=== PATIENT | female | born 1965 | race Caucasian/White ===

== ENCOUNTER 2022-11-04 14:19 | Outpatient (CLI) | payer BC, SELFPAY | END 2022-11-04 14:20 | disposition home or self-care (01) | LOC: ANHAUDIO 14:20 | PROVIDERS: PCP Family Medicine; Visit Provider Nurse Practitioner | DX: H90.3 Sensorineural hearing loss, bilateral (principal) | CPT/HCPCS: 92557; 92567 ==

== ENCOUNTER 2022-11-10 00:33 | Day surgery (SDC) | payer BC, SELFPAY ==
[2022-10-30 11:54] VITALS: BMI 27.3
[2022-11-10 09:58] VITALS: BP 143/66; PULSE 64; RESP 18; TEMP 36.4; O2SAT 98
[2022-11-10] MEDS: LACTATED RINGERS 1,000 ML 150 ML IV CONT (10:04)
--- NOTE | 2022-11-10 10:17 | WPDANESEPPF ---
Anes - Initial Pre Proc Eval Procedure: Operation Date: 11/10/22 11:00 Proposed Procedures p Colonoscopy - Itz Rahman MD Date/Time: 11/10/22 10:17 Surgeon: Itz Rahman MD Pre Op Diagnosis: IBS, neoplasm screening Patient Data Age: 57 Gender: F Height: 1.68 m Weight: 76 kg Last Vital Signs Temp 97.5 F L 11/10/22 09:58 Pulse 64 11/10/22 09:58 Resp 18 11/10/22 09:58 BP 143/66 H 11/10/22 09:58 Pulse Ox 98 11/10/22 09:58 O2 Del Method Room Air 11/10/22 09:58 Allergies Allergy/AdvReac Type Severity Reaction Status Date / Time No Known Allergies Allergy Verified 11/10/22 09:57 Home Medications Medication Instructions Recorded Confirmed Type hydroxyzine HCl 25 mg tablet 25 mg PO TID PRN anxiety #90 tabs 09/09/22 10/30/22 Rx multivitamin with minerals-folic 1 tablet PO .QD 09/09/22 10/30/22 History acid 200 mcg chewable tablet (Women's Multivitamin Gummies) hyoscyamine sulfate 0.125 mg 0.125 mg sublingual .every 6 hours 09/23/22 10/30/22 Rx sublingual tablet (Levsin/SL) PRN abdominal pain #30 tabs sertraline 100 mg tablet (Zoloft) 100 mg PO DAILY #90 tabs 10/29/22 10/30/22 Rx Patient hx anesthesia problems: none Family hx anesthesia problems: none Results Review: All pre-operative results and documents have been reviewed as part of the pre-operative evaluation. [facility] Past Medical History Medical History Anxiety Bilateral knee pain Collagenous colitis History of cystocele Insomnia Irritable bowel syndrome (IBS) Surgical History Surgical History H/O tubal ligation (~07/2003) History of partial hysterectomy (~2016) Status post creation of urethral sling by suprapubic approach Status post right rotator cuff repair (~1999) Social History Social History Smoking status: Never smoker Alcohol intake: current Drinks per week: 4 Alcohol use details: wine and vodka Substance use: current Substance use type: marijuana Lack of Transportation: No Lack of Food: Never True Current Housing: I Have Housing Concerned About Future Housing: No Difficulty Paying Gas/Electric Bills: No Difficulty Paying for Meds: No Currently Unemployed: No Education: Bachelor's Degree Difficulty w/ Childcare or Family Care: No Living arrangements: with family Additional living arrangements comments: Occupation/Education: occupation Additional occupation/education comments: Self employed Gender identity (if verbalized by the patient): Female Sexual Orientation (if Verbalized by the Patient): Straight or Heterosexual Spiritual care concerns: No Agree to blood products: Yes Anes - Eval Final PreProcedure Day of Procedure 11/10/22 10:17 Patient weight: normal Heart: regular rate and rhythm Lungs: clear to auscultation Airway: Mallampati scale class II Neurological: alert and oriented Last oral intake: >/= 8 hours ASA classification: II Emergent: no Anesthetic plan: proceed Anesthesia type and monitoring: general GIVS and standard monitoring Results Review: All pre-operative results and documents have been reviewed as part of the pre-operative evaluation. Informed Consent: The patient's anesthetic plan and its attendant risks and benefits were discussed with the patient/family/POA. Questions were solicited and answers provided to the satisfaction of the patient/family/POA.
--- NOTE | 2022-11-10 11:05 | PM.HPGS ---
History of Present Illness History of Present Illness Consent: Risks, benefits, and alternatives have been discussed and questions answered. Patient agrees to proceed with procedure. Chief complaint: IBS, neoplasm screening Narrative: Clari Oneill is a 57 year old female here for colon screening, last one 2014 but poor prep, also intermittent episodes 2-3 times a year of severe abdominal pain with diarrhea and pre syncope. Review of Systems Constitutional: Constitutional: Denies headache(s) and Denies weakness Eyes: Eyes: Denies blurry vision ENT: Reports Normal hearing present, Denies headache(s) and Denies neck pain Cardiovascular: Cardiovascular: Denies chest pain and Denies dyspnea Respiratory: Respiratory: Denies dyspnea Gastrointestinal: Gastrointestinal: Reports no additional gastrointestinal complaints Genitourinary: Genitourinary: Denies dysuria Musculoskeletal: Musculoskeletal: Denies neck pain Integumentary/Breasts: Skin/Breast: Denies dry skin Neurologic: Reports Normal hearing present, Denies headache(s) and Denies weakness Psychiatric: Psychiatric: Denies anxiety Endocrine: Endocrine: Denies change in body appearance Hematologic/Lymphatic: Hematologic/Lymphatic: Denies easy bleeding Allergic/Immunologic: Allergic/Immunologic: Denies urticaria PMFSH Past Medical History Medical History (Updated 11/10/22 @ 11:06 by Itz Rahman MD) Anxiety Bilateral knee pain Collagenous colitis Colon cancer screening History of cystocele Insomnia Irritable bowel syndrome (IBS) Surgical History Surgical History H/O tubal ligation (~07/2003) History of partial hysterectomy (~2016) Status post creation of urethral sling by suprapubic approach Status post right rotator cuff repair (~1999) Social History Social History Smoking status: Never smoker Alcohol intake: current Drinks per week: 4 Alcohol use details: wine and vodka Substance use: current Substance use type: marijuana Lack of Transportation: No Lack of Food: Never True Current Housing: I Have Housing Concerned About Future Housing: No Difficulty Paying Gas/Electric Bills: No Difficulty Paying for Meds: No Currently Unemployed: No Education: Bachelor's Degree Difficulty w/ Childcare or Family Care: No Living arrangements: with family Additional living arrangements comments: Occupation/Education: occupation Additional occupation/education comments: Self employed Gender identity (if verbalized by the patient): Female Sexual Orientation (if Verbalized by the Patient): Straight or Heterosexual Spiritual care concerns: No Agree to blood products: Yes Meds Home Medications and Allergies Home Medications Medication Instructions Recorded Confirmed Type hydroxyzine HCl 25 mg tablet 25 mg PO TID PRN anxiety #90 tabs 09/09/22 10/30/22 Rx multivitamin with minerals-folic 1 tablet PO .QD 09/09/22 10/30/22 History acid 200 mcg chewable tablet (Women's Multivitamin Gummies) hyoscyamine sulfate 0.125 mg 0.125 mg sublingual .every 6 hours 09/23/22 10/30/22 Rx sublingual tablet (Levsin/SL) PRN abdominal pain #30 tabs sertraline 100 mg tablet (Zoloft) 100 mg PO DAILY #90 tabs 10/29/22 10/30/22 Rx Allergies Allergy/AdvReac Type Severity Reaction Status Date / Time No Known Allergies Allergy Verified 11/10/22 09:57 Vital Signs Vital Signs - 24 hr 11/10/22 09:58 Temperature 97.5 F L Pulse Rate 64 Respiratory Rate 18 Blood Pressure 143/66 H Pulse Oximetry 98 Oxygen Delivery Room Air Exam Const: General: comfortable and no acute distress HENMT: Face/Nose/Sinus: Normal nares present Eyes: General: appearance normal, both eyes and all related structures Neck: Neck: no JVD Resp: Auscultation: clear to auscultation bilaterally Cardio: R
[2022-11-10 11:32] VITALS: BP 105/66; PULSE 57; RESP 18; O2SAT 99
[2022-11-10 11:42] VITALS: BP 131/100; PULSE 58; RESP 21; O2SAT 99
[2022-11-10 11:52] VITALS: BP 104/64; PULSE 52; RESP 21; O2SAT 99
== END 2022-11-10 11:56 | disposition home or self-care (01) ==
PROVIDERS: PCP Family Medicine; Visit Provider Internal Medicine Gastroenterology
PROC: 0DJD8ZZ Inspection of Lower Intestinal Tract, Via Natural or Artificial Opening Endoscopic (ICD-10-PCS; CPT 45378; principal; 2022-11-10 11:00)
DX: Z12.11 Encounter for screening for malignant neoplasm of colon (principal); K58.9 Irritable bowel syndrome, unspecified; F41.9 Anxiety disorder, unspecified; F12.90 Cannabis use, unspecified, uncomplicated
CPT/HCPCS: 45380; 88305; J2704; J7120

== ENCOUNTER 2023-03-04 08:32 | Outpatient (CLI) | payer BC, SELFPAY ==
[2023-03-04 18:52] LABS: Basophils Percent Auto 0.8 % (0.2-1.2); Eosinophils Absolute Auto 0.1 K/mm3 (0-0.3); Eosinophils Percent Auto 1.1 % (0-4.4); Hematocrit 38.9 % (37.0-47.0); Hemoglobin 12.7 g/dL (12.0-15.0); Immature Granulocyte Absolute 0.01 K/mm3 (0.00-0.031); Immature Granulocyte Percent A 0.2 % (0-0.5); Lymphocytes Absolute Auto 1.62 K/mm3 (0.9-3.2); Lymphocytes Percent Auto 30.5 % (18.3-44.2); Mean Corpuscular HGB Conc 32.6 g/dl (32-36); Mean Corpuscular Hemoglobin 33.1 pg (26-34); Mean Corpuscular Volume 101.3 fl (80-100); Mean Platelet Volume 10.3 fl (7.4-10.4); Monocytes Absolute Auto 0.4 K/mm3 (0.1-0.6); Monocytes Percent Auto 6.6 % (2.6-8.5); Neutrophils Absolute Auto 3.2 K/mm3 (1.3-6.7); Neutrophils Percent Auto 60.8 % (45.5-73.1); Platelet Count Result 238 k/mm3 (150-375); Red Blood Count 3.84 M/mm3 (4.2-5.4); Red Cell Distribution Width 12.2 % (11.5-14.5); White Blood Count 5.3 K/mm3 (4.5-10.0)
[2023-03-04 20:03] LABS: Vitamin D 25 Hydroxy 35.6 ng/mL
[2023-03-05 03:47] LABS: Alanine Aminotransferase 28 U/L (6-35); Albumin Level 4.2 g/dL (3.5-5.1); Alkaline Phosphatase 82 U/L (38-126); Anion Gap 6 mmol/L (8-16); Aspartate Amino Transferase 36 U/L (14-36); Bilirubin,Total 0.4 mg/dL (0.2-1.3); Blood Urea Nitrogen 19 mg/dL (7-17); Calcium 9.2 mg/dL (8.4-10.2); Carbon Dioxide 29 mmol/L (22-30); Chloride 101 mmol/L (98-107); Cholesterol 199 mg/dL (0-200); Estimated Glomerular Filt Rate > 60; Glucose 101 mg/dL (65-110); HDL Direct 61 mg/dL; Potassium 4.3 mmol/L (3.4-5.0); Sodium 136 mmol/L (137-145); Triglycerides 67 mg/dL (<150)
[2023-03-05 03:48] LABS: LDL Cholesterol Direct 110 mg/dL
== END 2023-03-04 08:33 | disposition home or self-care (01) ==
LOC: ANHGOSHLAB 08:34
PROVIDERS: PCP Family Medicine; Visit Provider Family Medicine
DX: Z00.00 Encounter for general adult medical examination without abnormal findings (principal); K58.9 Irritable bowel syndrome, unspecified; I10 Essential (primary) hypertension; E78.5 Hyperlipidemia, unspecified; E55.9 Vitamin D deficiency, unspecified; E53.8 Deficiency of other specified B group vitamins
CPT/HCPCS: 36415; 80053; 80061; 82306; 82607; 84443; 85025

== ENCOUNTER 2024-03-09 11:49 | Outpatient (CLI) | payer OTHER, SELFPAY ==
[2024-03-09 19:59] LABS: Basophils Percent Auto 0.5 % (0.2-1.2); Eosinophils Absolute Auto 0.1 K/mm3 (0-0.3); Eosinophils Percent Auto 0.7 % (0-4.4); Hematocrit 36.1 % (37.0-47.0); Immature Granulocyte Absolute 0.02 K/mm3 (0.00-0.031); Immature Granulocyte Percent A 0.2 % (0-0.5); Lymphocytes Absolute Auto 1.69 K/mm3 (0.9-3.2); Lymphocytes Percent Auto 20.1 % (18.3-44.2); Mean Corpuscular HGB Conc 33.2 g/dl (32-36); Mean Corpuscular Hemoglobin 33.8 pg (26-34); Mean Corpuscular Volume 101.7 fl (80-100); Mean Platelet Volume 10.9 fl (7.4-10.4); Monocytes Absolute Auto 0.5 K/mm3 (0.1-0.6); Monocytes Percent Auto 5.5 % (2.6-8.5); Neutrophils Absolute Auto 6.1 K/mm3 (1.3-6.7); Platelet Count Result 227 k/mm3 (150-375); Red Blood Count 3.55 M/mm3 (4.2-5.4); Red Cell Distribution Width 11.9 % (11.5-14.5); White Blood Count 8.4 K/mm3 (4.5-10.0)
[2024-03-09 21:13] LABS: Vitamin D 25 Hydroxy 31.3 ng/mL
[2024-03-09 21:20] LABS: Alanine Aminotransferase 13 U/L (6-35); Albumin Level 4.4 g/dL (3.5-5.1); Alkaline Phosphatase 77 U/L (38-126); Anion Gap 9 mmol/L (4-12); Aspartate Amino Transferase 25 U/L (14-36); Bilirubin,Total 0.6 mg/dL (0.2-1.3); Blood Urea Nitrogen 18 mg/dL (7-17); Calcium 9.3 mg/dL (8.4-10.2); Carbon Dioxide 28 mmol/L (22-30); Chloride 99 mmol/L (98-107); Cholesterol 187 mg/dL (0-200); Estimated Glomerular Filt Rate > 60; Glucose 91 mg/dL (65-110); HDL Direct 64 mg/dL; Potassium 3.4 mmol/L (3.4-5.0); Sodium 136 mmol/L (137-145); Triglycerides 75 mg/dL (<150)
[2024-03-09 21:32] LABS: LDL Cholesterol Direct 97 mg/dL
== END 2024-03-09 11:50 | disposition home or self-care (01) ==
LOC: ANHGOSHLAB 11:50
PROVIDERS: PCP Family Medicine; Visit Provider Student in an Organized Health Care Education/Training Program
DX: Z00.00 Encounter for general adult medical examination without abnormal findings (principal); E55.9 Vitamin D deficiency, unspecified; Z13.220 Encounter for screening for lipoid disorders; Z13.29 Encounter for screening for other suspected endocrine disorder; Z13.0 Encounter for screening for diseases of the blood and blood-forming organs and certain disorders involving the immune mechanism
CPT/HCPCS: 36415; 80053; 80061; 82306; 84443; 85025

== ENCOUNTER 2024-11-10 14:48 | Outpatient (CLI) | payer OTHER, SELFPAY ==
--- NOTE | ~2024-11-10 | US_ITS ---
EXAMINATION: US thyroid DATE: 11/10/2024 15:05 INDICATION: Thyroid goiter TECHNIQUE: Multiple ultrasound images of the thyroid were obtained. COMPARISON: None. FINDINGS: The right thyroid lobe measures 4.8 x 2.2 x 1.6 cm. Within the right lobe of the thyroid gland is a 19 x 16 x 16 mm nodule: Composition - solid or almost completely solid (2) Echogenicity -hyperechoic or isoechoic (1) Shape - wider than tall Margin - smooth Echogenic foci - none. = TR 3 Mildly suspicious Greater than or equal to 1.5 cm: Follow-up Greater than or equal to 2.5 cm: FNA The left thyroid lobe measures 4.3 x 1.7 x 1.4 cm. The isthmus measures 0.22cm in anterior to posterior dimension. There is otherwise normal echotexture and echogenicity throughout the remainder of the thyroid gland. No additional discrete nodules identified. IMPRESSION: TR 3 nodule within the right lobe of the thyroid gland for which follow-up is suggested (no FNA is ne eded at this time, based on size criteria). Reviewed, dictated and finalized at location [facility]. IMPRESSION: TR 3 nodule within the right lobe of the thyroid gland for which follow-up is s uggested (no FNA is needed at this time, based on size criteria).
== END 2024-11-10 14:49 | disposition home or self-care (01) ==
PROVIDERS: PCP Family Medicine; Visit Provider Family Medicine
DX: E04.9 Nontoxic goiter, unspecified (principal)
CPT/HCPCS: 76536

== ENCOUNTER 2025-02-20 12:18 | Outpatient (CLI) | payer OTHER, SELFPAY ==
--- NOTE | ~2025-02-20 | XR_ITS ---
Right Knee Technique: AP, lateral, and sunrise views were obtained. Clinical History: Pain Findings: No fracture or dislocation is seen. Osseous alignment is anatomic. There is mild tricompart mental degenerative joint disease. No joint effusion is seen. Impression: Mild tricompartmental degenerative joint disease. Reviewed, dictated and finalized at [facility]. Impression: Mild tricompartmental degenerative joint disease.
== END 2025-02-20 12:19 | disposition home or self-care (01) ==
LOC: GOSHIMG 12:19
PROVIDERS: PCP Orthopaedic Surgery; Visit Provider Family Medicine
DX: M17.11 Unilateral primary osteoarthritis, right knee (principal); M25.561 Pain in right knee; G89.29 Other chronic pain
CPT/HCPCS: 73564